=== PATIENT | male | born 1950 | race Two or more races ===

== ENCOUNTER 2019-06-25 08:29 | Emergency (ER) | payer OTHER, BC ==
[2019-06-25 08:39] VITALS: BP 147/88; PULSE 74; TEMP 98.6; BMI 27.9
[2019-06-25] MEDS ORDERED: KETOROLAC TROMETHAMINE 30 MG/1 ML VIAL IM ONE (09:01)
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
[2019-06-25] MEDS ORDERED: KETOROLAC TROMETHAMINE 30 MG/1 ML VIAL ONE (09:06)
== END 2019-06-25 11:21 | disposition home or self-care (01) ==
LOC: JERFT 08:29
PROC: 3E0233Z Introduction of Anti-inflammatory into Muscle, Percutaneous Approach (ICD-10-PCS; principal; 2019-06-25)
DX: M54.5 Low back pain (principal); M54.2 Cervicalgia; V49.49XA Driver injured in collision with other motor vehicles in traffic accident, initial encounter; Y92.411 Interstate highway as the place of occurrence of the external cause; Y93.89 Activity, other specified; Y99.8 Other external cause status; I10 Essential (primary) hypertension; E11.9 Type 2 diabetes mellitus without complications; E78.00 Pure hypercholesterolemia, unspecified; Z91.018 Allergy to other foods; Z79.84 Long term (current) use of oral hypoglycemic drugs
CPT/HCPCS: 72100-TC-FY; 99281-25

== ENCOUNTER 2022-02-10 11:33 | Emergency (ER) | payer BC, OTHER ==
[2022-02-10] MEDS ORDERED: LACTATED RINGERS SOLUTION 1000 ML INFUS.BAG IV ONE ×2 (12:23→13:50)
[2022-02-10 12:25] VITALS: TEMP 98.4; BMI 27.1
[2022-02-10 13:15] LABS: BASO % 0.5 % (0-2.0); EOS % 1.3 % (0-4.5); HEMATOCRIT 38.6 % (35.4-49); HEMOGLOBIN 13.1 GM/dL (11.7-16.9); LYMPH % 13.1 % (8-40); MCH 30.5 pg (25.7-33.7); MEAN CELL VOLUME 89.7 fl (80-96); MEAN PLT VOLUME 8.5 fl (7.5-11.1); MONO % 8.7 % (3.8-10.2); NEUT % 76.4 % (42.8-82.8); PLATELET COUNT 217 10^3/uL (134-434); RDW 13.1 % (11.9-15.9); WHITE BLOOD COUNT 6.7 K/mm3 (4.0-10.0)
[2022-02-10 13:35] LABS: CHLORIDE 103 mmol/L (98-107); SODIUM 136 mmol/L (136-145)
[2022-02-10 13:37] LABS: CALCIUM 8.9 mg/dL (8.5-10.1)
[2022-02-10 13:38] LABS: ALBUMIN 3.2 g/dl (3.4-5.0); ANION GAP 9 MMOL/L (8-16); BLOOD UREA NITROGEN 20.9 mg/dL (7-18); CO2 24 mmol/L (21-32); MAGNESIUM 2.5 mg/dL (1.8-2.4)
[2022-02-10 13:41] LABS: CREATININE 1.2 mg/dL (0.55-1.3); SGOT/AST 16 U/L (15-37); SGPT/ALT 27 U/L (13-61)
[2022-02-10 13:42] LABS: BILIRUBIN,TOTAL 0.2 mg/dL (0.2-1); TOT PROT 6.6 g/dl (6.4-8.2)
[2022-02-10 13:43] LABS: ALK PHOS 83 U/L (45-117)
[2022-02-10 13:50] LABS: GLUCOSE,RANDOM 461 mg/dL (74-106)
[2022-02-10 16:46] VITALS: BP 145/77; PULSE 76
== END 2022-02-10 16:47 | disposition home or self-care (01) ==
LOC: JER 11:33
DX: R73.9 Hyperglycemia, unspecified (principal)
CPT/HCPCS: 36415; 80053; 82962; 83735; 83930; 85025; 99283-25

== ENCOUNTER 2023-12-31 14:03 | Emergency (ER) | payer BC ==
[2023-12-31 14:11] VITALS: BP 115/82; PULSE 79; RESP 18; TEMP 98; BMI 29.8
== END 2023-12-31 16:51 | disposition home or self-care (01) ==
LOC: JER 14:03
DX: K06.8 Other specified disorders of gingiva and edentulous alveolar ridge (principal)
CPT/HCPCS: 71045-TC-FY; 74018-TC-FY; 99284-25